=== PATIENT | male | born 1940 | race Caucasian/White ===

== ENCOUNTER 2016-07-14 14:36 | Observation (INO) | payer OTHER ==
--- NOTE | 2016-07-14 14:46 | CPEKG ---
Heart Rate: 74 RR Interval: 811 P-R Interval: 168 QRSD Interval: 122 QT Interval: 408 QTC Interval: 453 P [place]: 12 QRS [place]: -96 T Wave [place]: 34 EKG Severity - ABNORMAL ECG - EKG Impression: SINUS RHYTHM EKG Impression: RBBB AND LPFB EKG Impression: PROBABLE INFERIOR INFARCT, OLD Electronically Signed By: Cj Sanders 14-Jul-2016 16:32:55
[2016-07-14] MEDS ORDERED: NS 500 ML IV ONE (14:52)
[2016-07-14] MEDS ORDERED: ASPIRIN 81 MG CHEWABLE TAB PO ONE (14:55)
[2016-07-14 15:00] LABS: % IMMATURE GRANULYOCYTES 0.2 % (0.0-1.1); ABSOLUTE IMMATURE GRANULOCYTES 0.02 10^3/uL (0.00-0.10); ADD DIFF? NO; ADD MORPH? NO; ADD SCAN? NO; ATYPICAL LYMPHOCYTE FLAG 0 (0-99); FRAGMENT RBC FLAG 0 (0-99); HEMATOCRIT 44.6 % (40.0-51.0); HEMOGLOBIN 15.3 g/dL (13.7-17.5); LEFT SHIFT FLG 0 (0-99); LIPEMIA HEMOLYSIS FLAG 90 (0-99); MEAN CELL HEMOGLOBIN 30.7 pg (27.9-34.1); MEAN CELL HEMOGLOBIN CONCENTR. 34.3 g/dL (32.4-36.7); MEAN CELL VOLUME 89.6 fL (81.5-99.8); MEAN PLATELET VOLUME 9.4 fL (8.7-11.7); PLATELET CLUMPS FLAG 0 (0-99); PLATELET COUNT 170 10^3/uL (150-400); RED BLOOD CELL COUNT 4.98 10^6/uL (4.40-6.38); RED CELL DISTRIBUTION WIDTH 12.9 % (11.5-15.2)
[2016-07-14 15:12] LABS: ANION GAP 15 mEq/L (8-16); CALCIUM 9.2 mg/dL (8.5-10.4); CARBON DIOXIDE 25 mEq/l (22-31); CHLORIDE 101 mEq/L (97-110); GLOMERULAR FILTRATION RATE > 60; GLUCOSE 105 mg/dL (70-100); POTASSIUM 4.3 mEq/L (3.5-5.2); SODIUM 141 mEq/L (134-144)
[2016-07-14] MEDS ORDERED: NS 1,000 ML IV ONE (15:16)
[2016-07-14 15:23] LABS: TROPONIN I < 0.012 ng/mL (0-0.034)
[2016-07-14 15:25] LABS: INR 1.15 (0.83-1.16); PROTIME(PATIENT) 14.4 SEC (12.0-15.0)
[2016-07-14 15:26] LABS: APTT 28.9 SEC (23.0-38.0)
--- NOTE | 2016-07-14 16:05 | CPEKG ---
Heart Rate: 68 RR Interval: 882 P-R Interval: 184 QRSD Interval: 128 QT Interval: 428 QTC Interval: 456 P [place]: 10 QRS [place]: -57 T Wave [place]: 33 EKG Severity - ABNORMAL ECG - EKG Impression: SINUS RHYTHM EKG Impression: RBBB AND LPFB EKG Impression: PROBABLE INFERIOR INFARCT, OLD Electronically Signed By: Cj Sanders 14-Jul-2016 16:32:44
[2016-07-14] MEDS ORDERED: NITROGLYCERIN 0.4 MG BTL SL ONE ×2 (16:12→16:15)
--- NOTE | 2016-07-14 16:15 | EDPHY ---
H & P Stated Complaint: Midsternal chest pain, low BP, fatigue since last night. Denies SOB Time Seen by Provider: 07/14/16 14:58 HPI/ROS: This patient presents with a combination of chest pain and hypotension. He reports that he has mild substernal chest pressure nonradiating peak intensity 3 /10 present for a few hours now, currently 1/10 in intensity. He explains that this chest pressure is similar to chest pressure that he has mostly aches for 1 more days of the week usually for 1-3 hours at a time with no clear exacerbating or alleviating factors. He reports is not exertional. Today he felt associated fatigue which is not typical for him and when he checked his blood pressure because quite low at 80/40. His pulse was 95 at the time. He has no other associated complaints. Patient was brought in by his son for further evaluation. The patient reports no changes in his medications or dosages of medications recently. He reports compliance with his medicines. ROS: Constitutional: Fatigue as above. No fevers. HEENT: No headache or URI symptoms. Neuro: No focal numbness tingling weakness. No confusion. Pulmonary: No cough dyspnea or pleuritic pain. Cardiovascular: No heart palpitations. He denies any calf swelling or pain. No diaphoresis. GI: He reports some chronic constipation the attributes to his morphine that he takes for osteoarthritis. He did have a large bowel movement after taking stool softeners this morning that was loose and slightly dark in color. He denies any belly pain currently. He does have some cramping belly discomfort that he attributes to constipation most days. : No complaints Integumentary: No rash or pallor Endocrine: No complaints 10 point ROS is otherwise negative Source: Patient, Family (Accompanied by his son) Exam Limitations: No limitations - Personal History Current Tetanus Diphtheria and Acellular Pertussis (TDAP): Yes Tetanus Vaccine Date: within 10 yrs - Medical/Surgical History Hx Asthma: No Hx Chronic Respiratory Disease: No Hx Diabetes: No Hx Cardiac Disease: Yes Hx Renal Disease: No Hx Cirrhosis: No Hx Alcoholism: No Hx HIV/AIDS: No Hx Splenectomy or Spleen Trauma: No Other PMH: Appy, bypass + stents, hyperlipidemia, GERD - Social History Smoking Status: Former smoker Alcohol Use: None Drug Use: None - Physical Exam Exam: General Appearance: Alert, no distress. Eyes: Pupils equal and round no pallor or injection. ENT, Mouth: Mucous membranes moist. Respiratory: There are no retractions, lungs are clear to auscultation. Cardiovascular: Regular rate and rhythm. No murmur gallop or rub. No JVD. No peripheral edema. Gastrointestinal: Abdomen is soft and nontender, no masses, bowel sounds normal. Rectal exam: No external hemorrhoids. Brown stool, no prostatic tenderness. No prostatic hypertrophy Hemoccult negative Neurological: GCS 15 with no focal sensory or motor deficits Skin: Warm and dry, no rashes. Musculoskeletal: Neck is supple nontender. Extremities are symmetrical, full range of motion. Psychiatric: Mood and affect normal DIFFERENTIAL DIAGNOSIS: After history and physical exam differential diagnosis was considered for dehydration, coronary syndrome, mi, PE, pneumonia, GI bleed Constitutional: Initial Vital Signs Temperature (C) 36.9 C 07/14/16 14:36 Heart Rate 79 07/14/16 14:36 Respiratory Rate 16 07/14/16 14:36 Blood Pressure 137/76 H 07/14/16 14:36 O2 Sat (%) 92 07/14/16 14:36 O2 Delivery Mode Room Air O2 (L/minute) 2 Allergies/Adverse Reactions: No Known Allergies Allergy (Verified 07/14/16 14:44) Home Medications: Medication Instructions Recorded Aspirin 07/14/16 Atorvastatin Calcium 07/14/16 Carvedilol 07/14/16 Clonazepam 07/14/16 Clopidogrel Bisulfate 07/14/16 Escitalopram Oxalate 07/14/16 Lovastatin 07/14/16 Melatonin 07/14/16 Metoprolol Tartrate 07/14/16 Multivitamin 07/14/16 Omeprazole 07/14/16 Ramipril 07/14/16 Tamsulosin HCl 07/14/16 morphINE 07/14/16 Medical Decision Making - Diagnostics EKG Interpretation: 12 lead EKG performed at 2:45 p.m. 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 When compared to previous EKG dated 05/28/2015 appreciate no interval change. No acute ST abnormalities. For complete read please refer to trace master a repeat EKG was performed at 1604 for interval change with ongoing 1/10 chest pain, improved blood pressure still with sinus rhythm at 68 and no interval change from the 1st EKG by my interpretation-right bundle-branch block and left posterior fascicular block. Imaging Results: Imaging Impressions Chest X-Ray 07/14/16 14:53 Impression: Sequela of prior CABG, with no evidence of congestive heart failure or focal infiltrate. Portable chest x-ray-no acute abnormalities Imaging: I viewed and interpreted images myself ED Course/Re-evaluation: IV, monitor, aspirin p. o. Labs: CBC normal, at 1st troponin normal, electrolytes normal, D-dimer negative , lactate normal 1 L normal saline bolus with resolution of his initial hypotension to a normotensive state. I discussed case with ziggy giordano, hospitalist accepts patient for transfer for further evaluation and workup. I also discussed case with Dr. George on-call for Dr. Talbert-cardiology agrees with the plan for nitroglycerin. If patient is pain-free with nitroglycerin will hold off on heparin. If he has ongoing pain will give him heparin bolus with plan to continue heparin drip the hospital. 1 supple nitroglycerin for 1/10 chest pain. Patient has persistent chest pain. 0.5 inch nitropaste placed Heparin bolus given-4000 units as per plan with Dr. Talbert and Dr. Odonnell for potential coronary syndrome Discussion: Patient presents with history of known coronary artery disease, chest pain suggestive of angina-mild with hypertension that improved with saline. No interval changes of his EKG and 1st troponin is negative. He states that he has a chronic element of angina or frequent angina that is similar. The cause of his hypotension is unclear. He does not have evidence of acute CHF , sepsis or other acute abnormalities are evident at this time. I suspect he has a combination of dehydration and perhaps some opiate effect from his chronic morphine though no recent changes in his morphine dose. Will admit for potential coronary syndrome for further treatment and observation. - Data Points Laboratory Results: Laboratory Results 07/14/16 14:45 07/14/16 14:45 07/14/16 07/14/16 07/14/16 15:15 14:55 14:45 WBC RBC Hgb Hct MCV MCH MCHC RDW Plt Count MPV Neut % (Auto) Lymph % (Auto) Glenn % (Auto) Eos % (Auto) Baso % (Auto) Nucleat RBC Rel Count Absolute Neuts (auto) Absolute Lymphs (auto) Absolute Monos (auto) Absolute Eos (auto) Absolute Basos (auto) Absolute Nucleated RBC Immature Gran % Immature Gran # PT 14.4 SEC SEC (12.0-15.0) INR 1.15 (0.83-1.16) APTT 28.9 SEC SEC (23.0-38.0) D-Dimer 0.40 ug/mLFEU ug/mLFEU (0.00-0.50) VBG Lactic Acid 0.9 mmol/L mmol/L (0.7-2.1) Sodium Potassium Chloride Carbon Dioxide Anion Gap BUN Creatinine Estimated GFR Glucose Calcium Troponin I Stool Occult Bld Scrn NEGATIVE (NEGATIVE) 07/14/16 07/14/16 14:45 14:45 WBC 8.14 10^3/uL 10^3/uL (3.80-9.50) RBC 4.98 10^6/uL 10^6/uL (4.40-6.38) Hgb 15.3 g/dL g/dL (13.7-17.5) Hct 44.6 % % (40.0-51.0) MCV 89.6 fL fL (81.5-99.8) MCH 30.7 pg pg (27.9-34.1) MCHC 34.3 g/dL g/dL (32.4-36.7) RDW 12.9 % % (11.5-15.2) Plt Count 170 10^3/uL 10^3/uL (150-400) MPV 9.4 fL fL (8.7-11.7) Neut % (Auto) 67.6 % % (39.3-74.2) Lymph % (Auto) 19.3 % % (15.0-45.0) Glenn % (Auto) 8.0 % % (4.5-13.0) Eos % (Auto) 3.8 % % (0.6-7.6) Baso % (Auto) 1.1 % % (0.3-1.7) Nucleat RBC Rel Count 0.0 % % (0.0-0.2) Absolute Neuts (auto) 5.50 10^3/uL 10^3/uL (1.70-6.50) Absolute Lymphs (auto) 1.57 10^3/uL 10^3/uL (1.00-3.00) Absolute Monos (auto) 0.65 10^3/uL 10^3/uL (0.30-0.80) Absolute Eos (auto) 0.31 10^3/uL 10^3/uL (0.03-0.40) Absolute Basos (auto) 0.09 10^3/uL 10^3/uL (0.02-0.10) Absolute Nucleated RBC 0.00 10^3/uL 10^3/uL (0-0.01) Immature Gran % 0.2 % % (0.0-1.1) Immature Gran # 0.02 10^3/uL 10^3/uL (0.00-0.10) PT INR APTT D-Dimer VBG Lactic Acid Sodium 141 mEq/L mEq/L (134-144) Potassium 4.3 mEq/L mEq/L (3.5-5.2) Chloride 101 mEq/L mEq/L (97-110) Carbon Dioxide 25 mEq/l mEq/l (22-31) Anion Gap 15 mEq/L mEq/L (8-16) BUN 11 mg/dL mg/dL (7-23) Creatinine 1.0 mg/dL mg/dL (0.7-1.3) Estimated GFR > 60 Glucose 105 mg/dL H mg/dL (70-100) Calcium 9.2 mg/dL mg/dL (8.5-10.4) Troponin I < 0.012 ng/mL ng/mL (0-0.034) Stool Occult Bld Scrn Medications Given: Discontinued Medications Aspirin (Aspirin) 243 mg PO EDNOW ONE Stop: 07/14/16 14:56 Last Admin: 07/14/16 14:59 Dose: 243 mg Sodium Chloride (Ns) 500 mls @ 1,000 mls/hr IV ONCE ONE PRN Reason: Protocol Stop: 07/14/16 15:21 Last Admin: 07/14/16 15:05 Dose: 500 mls Sodium Chloride (Ns) 1,000 mls @ 0 mls/hr IV ONCE ONE; Wide Open PRN Reason: Protocol Stop: 07/14/16 15:17 Last Admin: 07/14/16 15:14 Dose: 1,000 mls Nitroglycerin (Nitrostat) 0.4 mg SL EDNOW ONE Stop: 07/14/16 16:16 Last Admin: 07/14/16 16:15 Dose: 0.4 mg Departure - Departure Disposition: [facility] Inpatient Acute Clinical Impression: Chest pain Qualifiers: Chest pain type: unspecified Qualified Code(s): R07.9 - Chest pain, unspecified Hypotension Qualifiers: Hypotension type: unspecified hypotension type Qualified Code(s): I95.9 - Hypotension, unspecified Condition: Fair
[2016-07-14] MEDS ORDERED: NITROGLYCERIN 2% 1 GM PACKET TP ONE (16:26)
[2016-07-14] MEDS ORDERED: HEPARIN 10,000 UNIT/10 ML MDV IVP ONE (16:26)
[2016-07-14] MEDS ORDERED: HEPARIN 10,000 UNIT/10 ML MDV ONE (16:34)
[2016-07-14] MEDS ORDERED: NITROGLYCERIN 2% 1 GM PACKET ONE (16:42)
[2016-07-14] MEDS ORDERED: ONDANSETRON DISINTEGRATING 4 MG TAB PO PRN (18:21)
[2016-07-14] MEDS ORDERED: ACETAMINOPHEN 325 MG TAB PO PRN (18:21)
[2016-07-14] MEDS ORDERED: ONDANSETRON 4 MG/2 ML VIAL IVP PRN (18:21)
--- NOTE | 2016-07-14 18:29 | PDGENHP ---
History and Physical - Chief Complaint Acute chest pain - History of Present Illness Primary care provider: Dr. Alejandra Primary apprentice photographer: Dr. Talbert HPI: 75-year-old male presenting with acute chest pain characterized as sharp pain located in the substernal area, initially 1/10 in severity, escalated 3/10 severity then back down to 1/10. It was associated with some fatigue on the day of presentation, resulting in the decision to go to urgent care for further evaluation. Patient reports that the onset of his symptoms today were in the morning and he noted that his systolic blood pressure was 80/40. He was resting and not exerting himself. His symptoms of chest pain were alleviated without any intervention. His symptoms of fatigue and hypotension were alleviated by 1 L normal saline. The patient denies any other infectious symptoms, reports his oral intake of solids and liquids has been good, reports that he has not been having any diarrhea or vomiting. He does endorse that his chest pain symptoms have been intermittent and occurring for quite some time, magnitude of months to years. He has discussed them with his primary apprentice photographer and he has been told he can take sublingual nitroglycerin for these symptoms if he so desires. The patient decides not to take sublingual nitroglycerin as it seems to provoke headache. History Information - Allergies/Home Medication List Allergies/Adverse Reactions: No Known Allergies Allergy (Verified 07/14/16 14:44) Home Medications: Aspirin 07/14/16 [Last Taken Unknown] Atorvastatin Calcium 07/14/16 [Last Taken Unknown] Carvedilol 07/14/16 [Last Taken Unknown] Clonazepam 07/14/16 [Last Taken Unknown] Clopidogrel Bisulfate 07/14/16 [Last Taken Unknown] Escitalopram Oxalate 07/14/16 [Last Taken Unknown] Lovastatin 07/14/16 [Last Taken Unknown] Melatonin 07/14/16 [Last Taken Unknown] Metoprolol Tartrate 07/14/16 [Last Taken Unknown] Multivitamin 07/14/16 [Last Taken Unknown] Omeprazole 07/14/16 [Last Taken Unknown] Ramipril 07/14/16 [Last Taken Unknown] Tamsulosin HCl 07/14/16 [Last Taken Unknown] morphINE 07/14/16 [Last Taken Unknown] I have personally reviewed and updated: family history, medical history, social history, surgical history - Past Medical History coronary artery disease (With last cardiac stents approximately 3 years ago), hypertension, hyperlipidemia Additional medical history: Osteoarthritis with continuous opiate dependency - Surgical History Additional surgical history: CABG, cardiac stents, ureteral stent 2012 - Family History Additional family history: No recent history of sick family contacts - Social History Smoking Status: Former smoker Alcohol Use: None Drug Use: None Additional social history: Normally independent in his ADLs, patient does not exercise regularly but when he does mow his yd does not get chest pain Review of Systems ROS: 10pt was reviewed & negative except for what was stated in HPI & below Constitutional: Reports: other (Fatigue) Cardiac: Reports: chest pain Physical Exam Temp Pulse Resp BP Pulse Ox 36.6 C 55 L 12 106/57 L 94 07/14/16 17:30 07/14/16 17:30 07/14/16 17:30 07/14/16 17:30 07/14/16 17:30 Constitutional: no apparent distress, appears nourished, not in pain Eyes: PERRL, anicteric sclera, EOMI Ears, Nose, Mouth, Throat: moist mucous membranes, hearing normal, ears appear normal, no oral mucosal ulcers Cardiovascular: regular rate and rhythym, no murmur, rub, or gallop, No edema Respiratory: no respiratory distress, no rales or rhonchi, clear to auscultation Gastrointestinal: normoactive bowel sounds, soft, non-tender abdomen, no palpable masses Genitourinary: no bladder fullness, no bladder tenderness Skin: other (Vesicular lesions or rashes over his chest) Musculoskeletal: other (Full range of motion bilateral shoulders without any pain, no tenderness to palpation of the pectoralis muscles) Neurologic: AAOx3, sensation intact bilaterally Psychiatric: interacting appropriately, not anxious, not encephalopathic, thought process linear Lab Data & Imaging Review 07/14/16 14:45 07/14/16 14:45 WBC 8.14 10^3/uL (3.80-9.50) 07/14/16 14:45 RBC 4.98 10^6/uL (4.40-6.38) 07/14/16 14:45 Hgb 15.3 g/dL (13.7-17.5) 07/14/16 14:45 Hct 44.6 % (40.0-51.0) 07/14/16 14:45 MCV 89.6 fL (81.5-99.8) 07/14/16 14:45 MCH 30.7 pg (27.9-34.1) 07/14/16 14:45 MCHC 34.3 g/dL (32.4-36.7) 07/14/16 14:45 RDW 12.9 % (11.5-15.2) 07/14/16 14:45 Plt Count 170 10^3/uL (150-400) 07/14/16 14:45 MPV 9.4 fL (8.7-11.7) 07/14/16 14:45 Neut % (Auto) 67.6 % (39.3-74.2) 07/14/16 14:45 Lymph % (Auto) 19.3 % (15.0-45.0) 07/14/16 14:45 [place] % (Auto) 8.0 % (4.5-13.0) 07/14/16 14:45 Eos % (Auto) 3.8 % (0.6-7.6) 07/14/16 14:45 Baso % (Auto) 1.1 % (0.3-1.7) 07/14/16 14:45 Nucleat RBC Rel Count 0.0 % (0.0-0.2) 07/14/16 14:45 Absolute Neuts (auto) 5.50 10^3/uL (1.70-6.50) 07/14/16 14:45 Absolute Lymphs (auto) 1.57 10^3/uL (1.00-3.00) 07/14/16 14:45 Absolute Monos (auto) 0.65 10^3/uL (0.30-0.80) 07/14/16 14:45 Absolute Eos (auto) 0.31 10^3/uL (0.03-0.40) 07/14/16 14:45 Absolute Basos (auto) 0.09 10^3/uL (0.02-0.10) 07/14/16 14:45 Absolute Nucleated RBC 0.00 10^3/uL (0-0.01) 07/14/16 14:45 Immature Gran % 0.2 % (0.0-1.1) 07/14/16 14:45 Immature Gran # 0.02 10^3/uL (0.00-0.10) 07/14/16 14:45 PT 14.4 SEC (12.0-15.0) 07/14/16 14:45 INR 1.15 (0.83-1.16) 07/14/16 14:45 APTT 28.9 SEC (23.0-38.0) 07/14/16 14:45 D-Dimer 0.40 ug/mLFEU (0.00-0.50) 07/14/16 14:45 VBG Lactic Acid 0.9 mmol/L (0.7-2.1) 07/14/16 14:55 Sodium 141 mEq/L (134-144) 07/14/16 14:45 Potassium 4.3 mEq/L (3.5-5.2) 07/14/16 14:45 Chloride 101 mEq/L (97-110) 07/14/16 14:45 Carbon Dioxide 25 mEq/l (22-31) 07/14/16 14:45 Anion Gap 15 mEq/L (8-16) 07/14/16 14:45 BUN 11 mg/dL (7-23) 07/14/16 14:45 Creatinine 1.0 mg/dL (0.7-1.3) 07/14/16 14:45 Estimated GFR > 60 07/14/16 14:45 Glucose 105 mg/dL (70-100) H 07/14/16 14:45 Calcium 9.2 mg/dL (8.5-10.4) 07/14/16 14:45 Troponin I < 0.012 ng/mL (0-0.034) 07/14/16 14:45 Stool Occult Bld Scrn NEGATIVE (NEGATIVE) 07/14/16 15:15 Visualized and Interpreted Chest x-ray results: Yes Chest X-Ray results: no infiltrate (No CHF) Visualized and Interpreted EKG results: Yes EKG Interpretation: Positive for: other (Right bundle branch block with left posterior fascicular block) Assessment & Plan Assessment: 75-year-old male presenting with acute chest pain in the setting of known coronary artery disease Plan: 1. Chest pain. Acute, new problem this provider, further workup indicated. Potential etiologies include unstable angina versus atypical chest pain. -given his history of coronary artery disease as well as other comorbid risk factors, recommend further cardiac risk stratification at this time -given that he is chest pain-free at this time we will not initiate sublingual nitroglycerin or heparin, but would recommend reassessing if he experiences recurrent pain -his most recent stress test has been remote and would recommend treadmill at this time -cardiology consultation appreciated to help determine if treadmill stress testing is the correct modality versus cardiac catheterization given his underlying CAD -if treadmill unremarkable, then recommend further discussion with patient regarding atypical causes of chest pain notably GERD versus costochondritis versus chronic pain syndrome -continue monitor on telemetry -repeat troponin this evening 2. Coronary artery disease. Continue home medications once reconciled 3. Hypertension. Acute, SBP 80 prior to presentation with associated fatigue, most likely the symptom is related to the number -unclear etiology of hypotension, patient reports no recent changes in his home medications or any other signs of infection -continue monitor blood pressure closely and if experiences recurrent hypertension, send lactic acid level -discussed with Dr. Cj Sanders from urgent care, he has told me that the patient received 1 L normal saline hold on further IV fluids 4. Chronic pain with continuous opiate dependency. Reviewed outside records including 05/30/2012 discharge summary by Joseline Ordoñez, she reports the patient had nephrolithiasis as well of hydronephrosis and his osteoarthritis seems to be contributing to her chronic pain syndrome for which she chronically takes opiates Diet. Cardiac, NPO in a.m. Prophylaxis. High risk patient, Lovenox 40 Code status. Full, is MPOA Disposition. Anticipated discharge is 07/15/2016, pending further workup as outlined above.
[2016-07-14] MEDS ORDERED: SENNOSIDES 1 TAB PO PRN (22:33)
[2016-07-15 05:48] LABS: % IMMATURE GRANULYOCYTES 0.4 % (0.0-1.1); ABSOLUTE IMMATURE GRANULOCYTES 0.03 10^3/uL (0.00-0.10); ADD DIFF? NO; ADD MORPH? NO; ADD SCAN? NO; ATYPICAL LYMPHOCYTE FLAG 0 (0-99); FRAGMENT RBC FLAG 0 (0-99); HEMATOCRIT 37.8 % (40.0-51.0); HEMOGLOBIN 12.9 g/dL (13.7-17.5); LEFT SHIFT FLG 0 (0-99); LIPEMIA HEMOLYSIS FLAG 90 (0-99); MEAN CELL HEMOGLOBIN 31.3 pg (27.9-34.1); MEAN CELL HEMOGLOBIN CONCENTR. 34.1 g/dL (32.4-36.7); MEAN CELL VOLUME 91.7 fL (81.5-99.8); PLATELET CLUMPS FLAG 0 (0-99); PLATELET COUNT 136 10^3/uL (150-400); RED BLOOD CELL COUNT 4.12 10^6/uL (4.40-6.38)
[2016-07-15 06:07] LABS: ALANINE AMINOTRANSFERASE 31 IU/L (21-72); ALBUMIN 3.5 g/dL (3.5-5.0); ALKALINE PHOSPHATASE 51 IU/L (38-126); ANION GAP 9 mEq/L (8-16); ASPARTATE AMINOTRANSFERASE 21 IU/L (17-59); BILIRUBIN,TOTAL 1.8 mg/dL (0.1-1.4); CALCIUM 8.6 mg/dL (8.5-10.4); CARBON DIOXIDE 21 mEq/l (22-31); CHLORIDE 108 mEq/L (97-110); GLOMERULAR FILTRATION RATE > 60; GLUCOSE 88 mg/dL (70-100); SODIUM 138 mEq/L (134-144); TOTAL PROTEIN 5.8 g/dL (6.3-8.2)
[2016-07-15] MEDS: morphINE IR 30 MG TAB PO SCH ×4 (07:09→21:57)
[2016-07-15] MEDS: ENOXAPARIN 40 MG/0.4 ML SYR SC SCH (08:31)
[2016-07-15] MEDS: TAMSULOSIN HCL 0.4 MG CAP PO SCH (08:32)
[2016-07-15] MEDS: PRAVASTATIN SODIUM 40 MG TAB PO SCH ×2 (08:32→21:58)
[2016-07-15] MEDS: ASPIRIN EC 81 MG TAB PO SCH (08:32)
--- NOTE | 2016-07-15 10:03 | PDCARST ---
CAR Stress Test Results Type of Stress Test: Nuclear TM stress test Indication: cp/hypotension Description of Procedure: After informed consent was obtained, pt was exercised according to Alvino Protocol. Monitoring was performed with standard stress tablet tester electrode placement. Vital signs were monitored according to protocol throughout the procedure. STRESS EKG AND HEMODYNAMIC DATA. Exercise time: 5 min. This is equivalent to: 6.1 METS. Resting heart rate: 57 bpm. Resting blood pressure: 124/68 mmHg. Resting O2 saturation: 96 %. Peak heart rate: 142 bpm. This is 97% of age predicted maximum heart rate response. Peak blood pressure: 158/60 mmHg. Exercise O2: 92%. Arrhythmias : None. Reason for termination: The test was stopped due to maximal effort. Symptoms: The patient experienced no typical symptoms of angina during stress or recovery. STRESS TEST ANALYSIS. Baseline ECG: SR with RBBBB, inf Qs. Stress ECG: SR with RBBB. exercise induced ischemic ECG changes: No. Rhythm: no arrhythmias noted during exercise and recovery. Blood pressure: normal blood pressure response to exercise. Exercise tolerance: The patient has normal exercise tolerance adjusted for age and gender. Symptoms: No exercise induced symptoms. Impression: Stress ECG negative for ischemia. The Shane Treadmill Score is consistent with low cardiovascular risk (<1% annual mortality). Conclusion: Await nuclear images.
--- NOTE | 2016-07-15 10:15 | PDCARPN ---
Cardiology Progress Note Chief Complaint: chronic cp/hypotension Assessment/Plan: Assessment: 75M PMH CAD/CABG, PCI to LAD 2006, C 2016 with patent grafts/stent, dyslipidemia, htn, frequent PVCs (controlled with Metoprolol), presented to [facility] ED with cp with associated low BP of 80/40. This was also associated with fatigue. # cp: chronic issue MPI today likely d/c home if images wnl #. hypotension: improved with IV hydration pt should be encouraged to increase PO hydration #. PVCs: none seen on tele monitoring decrease home Metoprolol to 12.5 hs Plan: OK to d/c if MPI normal Decrease home Metoprolol to 12.5 at hs Increase hydration to 2-3 liters daily follow up with Dr. Talbert or Bas[place] in 1 month's time 07/15/16 10:08 Subjective: Feels well currently. Reviewed/Discussed With: hospitalist (Dr. Carrera) Objective: Vital Signs (8 Hrs) Temp Pulse Resp BP Pulse Ox 07/15/16 08:20 98.0 F 54 L 16 95/54 L 92 07/15/16 03:40 97.8 F 61 18 98/48 L 91 L Intake/Output (24 Hrs) 07/14/16 07/15/16 07/16/16 05:59 05:59 05:59 Intake Total 2150 Balance 2150 Intake: Oral (ml) 450 IV Infused (ml) 1700 Other: Weight 86.6 kg Number of Voids Toilet 3 Result Diagrams: 07/15/16 04:12 07/15/16 04:12 Cardiac Labs: Cardiac Lab Results (72 Hrs) 07/14/16 22:57 Troponin I < 0.012 - Physical Exam Constitutional: healthy appearing, no apparent distress Ears, Nose, Mouth, Throat: moist mucous membranes Cardiovascular: regular rate and rhythm Respiratory: clear to auscultate bilat, no crackles Neurologic: AAOx3 Psychiatric: cooperative, interactive ICD10 Worksheet Patient Problems: Problems Problem Status Onset Chest pain Acute Hypotension Acute
[2016-07-15] MEDS ORDERED: METHYLNALTREXONE BROMIDE 12 MG/0.6 ML INJ SC ONE (16:18)
--- NOTE | 2016-07-15 17:42 | HOSPPROG ---
Hospitalist Progress Note Assessment/Plan: 75 yo M with PMH of CAD s/p CABG as well as chronic pain with continuous opiate use and dependency admitted with chest pain # chest pain: appreciate cardiology input, this is a fairly frequent issue for him and sxs seem to be his usual angina sxs. Trops neg x 2. ECG personally reviewed showing SR, LPFB, RBBB all of which is unchanged from prior. Nuc stress performed today and there is e/o inferior wall defect and will need rest portion performed in am for full eval. Currently chest pain free # chronic abdominal pain: in discussion with patient and his this is largely related to constipation which has been an ongoing issue for him since being on morphine. He has tried laxatives with some mild improvement. Last BM was yesterday and today there is essentially no pain and normal abd exam. Suspect all related to constipation as next. 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 Frequently goes several days w /o having a bm. Does not eat much roughage. Has not tried relistor and will give a one time dose here as well as bowel protocol. Reviewed options to try to have more fiber in his diet and will ask dietary to see him also # chronic pain/continuous opiate use and dependency: at baseline, having significant constipation as above # BPH: continued on tamsulosin, does have issues with urinary retention at times largely when also having issues with constipation as above # CAD: hx of cabg, cp w/u as above, continue asa/plavix/statin/bb # PVCs: has been a chronic issue for which he is on BB, hr on the low end currently so decreased metop to 12.5 at HS # dispo: IP status, given multiple active comorbid complaints will need > 48 hours for eval/mgmt of above Patient new to my care. Old records reviewed and summarized as above. Care plan reviewed with patients present at bedside as well as cardiology. Subjective: no acute overnight events, no longer having chest pain, has had some abdominal pain which is frequent for him. c/o constipation--long standing issue Objective: Vital Signs Temp Pulse Resp BP Pulse Ox 36.6 C 54 L 14 103/55 L 96 07/15/16 15:40 07/15/16 15:40 07/15/16 15:40 07/15/16 15:40 07/15/16 15:40 Laboratory Results 07/15/16 04:12 07/15/16 04:12 07/14/16 07/15/16 07/16/16 05:59 05:59 05:59 Intake Total 2150 120 Balance 2150 120 PT 14.4 SEC (12.0-15.0) 07/14/16 14:45 INR 1.15 (0.83-1.16) 07/14/16 14:45 awake alert nad anicteric op clear rrr rakesh cta b soft mild diffuse ttp +bs nd no cce warm dry well perfused oriented appropriate - Time Spent With Patient Time Spent with Patient: greater than 35 minutes Time Spent with Patient: Greater than 35 minutes spent on this patients care, greater than 50% of time spent counseling, educating, and coordinating care regarding the above mentioned plan. ICD10 Worksheet Patient Problems: Problems Problem Status Onset Chest pain Acute Hypotension Acute
[2016-07-15] MEDS ORDERED: METOPROLOL TARTRATE 25 MG TAB PO SCH (21:00)
[2016-07-15] MEDS ORDERED: CLOPIDOGREL BISULFATE 75 MG TAB PO SCH (21:00)
[2016-07-16 05:31] LABS: % IMMATURE GRANULYOCYTES 0.1 % (0.0-1.1); ABSOLUTE IMMATURE GRANULOCYTES 0.01 10^3/uL (0.00-0.10); ADD DIFF? NO; ADD MORPH? NO; ADD SCAN? NO; ATYPICAL LYMPHOCYTE FLAG 0 (0-99); FRAGMENT RBC FLAG 0 (0-99); HEMATOCRIT 42.6 % (40.0-51.0); HEMOGLOBIN 14.3 g/dL (13.7-17.5); LEFT SHIFT FLG 0 (0-99); LIPEMIA HEMOLYSIS FLAG 80 (0-99); MEAN CELL HEMOGLOBIN 30.8 pg (27.9-34.1); MEAN CELL HEMOGLOBIN CONCENTR. 33.6 g/dL (32.4-36.7); MEAN CELL VOLUME 91.8 fL (81.5-99.8); MEAN PLATELET VOLUME 9.9 fL (8.7-11.7); PLATELET CLUMPS FLAG 0 (0-99); PLATELET COUNT 144 10^3/uL (150-400); RED BLOOD CELL COUNT 4.64 10^6/uL (4.40-6.38); RED CELL DISTRIBUTION WIDTH 12.9 % (11.5-15.2)
[2016-07-16] MEDS: morphINE IR 30 MG TAB PO SCH ×2 (05:38→12:27)
[2016-07-16 05:41] LABS: ALANINE AMINOTRANSFERASE 32 IU/L (21-72); ALBUMIN 3.8 g/dL (3.5-5.0); ALKALINE PHOSPHATASE 51 IU/L (38-126); ANION GAP 12 mEq/L (8-16); ASPARTATE AMINOTRANSFERASE 23 IU/L (17-59); BILIRUBIN,TOTAL 1.3 mg/dL (0.1-1.4); BILIRUBIN-CONJUGATED 0.1 mg/dL (0.0-0.5); BILIRUBIN-UNCONJUGATED 1.2 mg/dL (0.0-1.1); CALCIUM 9.5 mg/dL (8.5-10.4); CARBON DIOXIDE 25 mEq/l (22-31); CHLORIDE 103 mEq/L (97-110); GLOMERULAR FILTRATION RATE > 60; GLUCOSE 101 mg/dL (70-100); POTASSIUM 4.2 mEq/L (3.5-5.2); SODIUM 140 mEq/L (134-144); TOTAL PROTEIN 6.7 g/dL (6.3-8.2)
[2016-07-16 07:18] VITALS: O2SAT 92
[2016-07-16] MEDS: PRAVASTATIN SODIUM 40 MG TAB PO SCH (08:45)
[2016-07-16] MEDS: ENOXAPARIN 40 MG/0.4 ML SYR SC SCH (08:45)
[2016-07-16] MEDS: ASPIRIN EC 81 MG TAB PO SCH (08:45)
[2016-07-16] MEDS: TAMSULOSIN HCL 0.4 MG CAP PO SCH (08:45)
[2016-07-16 11:34] VITALS: BP 100/60; PULSE 49; RESP 12; TEMP 97.6
--- NOTE | 2016-07-16 14:07 | PDDCSUM ---
Discharge Summary Discharge Summary: Dates of service 07/14-07/16/16 Discharge diagnosis: # chest pain/stable angina # CAD # opioid induced constipation # chronic pain/continuous opioid use and dependency # BPH # PVCs Consultations: cardiology Procedures performed: nuc stress test Hospital course by problem: # chest pain/stable angina: this seems c/w his usual recurrent angina sxs, trops neg, ecg unchanged, stress test with same defect that was present in the past. Cardiology recommending op f/u and no change to his current regimen. Currently cp free. 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 Frequently goes several days w /o having a bm. Does not eat much roughage. Given sc relistor x 1 and recommending that if this works that he obtain an rx from his pcp for oral. continue bowel protocol. # chronic pain/continuous opiate use and dependency: at baseline, having significant constipation as above # BPH: continued on tamsulosin, does have issues with urinary retention at times largely when also having issues with constipation as above # CAD: hx of cabg, cp w/u as above, continue asa/plavix/statin/bb # PVCs: has been a chronic issue for which he is on BB, hr on the low end currently so decreased metop to 12.5 at HS # dispo: dc home Meds: see EHR F/u with pcp and cardiology > 35 minutes spent in care of patient more than half in face to face counseling of patient and his regarding f/u care plans
== END 2016-07-16 15:15 | disposition home or self-care (01) ==
LOC: CED 14:36 → CEDHOLD 15:35 → F2W 17:24 → INTOOBSV 07-15 17:42 → OBSVTOIN 07-15 17:42
PROVIDERS: ADMIT Internal Medicine; ATTEND Internal Medicine
DX: I25.119 Atherosclerotic heart disease of native coronary artery with unspecified angina pectoris (principal); I10 Essential (primary) hypertension; G89.29 Other chronic pain; F11.20 Opioid dependence, uncomplicated; Z95.1 Presence of aortocoronary bypass graft; K59.03 Drug induced constipation; T40.2X5A Adverse effect of other opioids, initial encounter; N40.1 Benign prostatic hyperplasia with lower urinary tract symptoms; R33.8 Other retention of urine; I49.3 Ventricular premature depolarization; Z95.5 Presence of coronary angioplasty implant and graft
CPT/HCPCS: 71010; 78452; 93005; 93017; 96361; 96374; 96375; 99285; A9500; G0378; J1644; J1650; J2212; 80048-PO; 82270-PO; 83605-PO; 84484-PO; 85025-PO; 85378-PO; 85610-PO; 85730-PO

== ENCOUNTER 2018-05-31 07:12 | Inpatient (IN) | payer OTHER ==
[2018-05-31] MEDS ORDERED: ASPIRIN EC 325 MG TAB PO ONE ×2 (07:14→07:29)
[2018-05-31] MEDS ORDERED: NS 1,000 ML IV ONE (07:14)
[2018-05-31] MEDS ORDERED: FAMOTIDINE 20 MG TAB PO ONE (07:14)
[2018-05-31] MEDS ORDERED: DIAZEPAM 5 MG TAB PO ONE (07:14)
[2018-05-31] MEDS ORDERED: diphenhydrAMINE 25 MG CAP PO ONE ×2 (07:14→07:29)
[2018-05-31] MEDS ORDERED: FAMOTIDINE 20 MG TAB ONE (07:29)
[2018-05-31] MEDS ORDERED: DIAZEPAM 5 MG TAB ONE (07:30)
[2018-05-31] MEDS ORDERED: LIDOCAINE 1% 300 MG/30 ML SDV ONE (09:00)
[2018-05-31] MEDS ORDERED: MIDAZOLAM 2 MG/2 ML VIAL ONE ×2 (09:00→12:07)
[2018-05-31] MEDS ORDERED: IOPAMIDOL (ISOVUE-370) 150 ML BTL IV ONE ×3 (09:00→11:21)
[2018-05-31] MEDS ORDERED: fentaNYL 100 MCG/2 ML INJ ONE ×3 (09:00→12:07)
[2018-05-31] MEDS ORDERED: BIVALIRUDIN 250 MG/5 ML VIAL IV ONE ×2 (10:24→11:13)
[2018-05-31] MEDS ORDERED: NITROGLYCERIN 1,500 MCG/15 ML VIAL MISC ONE (10:24)
[2018-05-31] MEDS ORDERED: ATROPINE SULFATE 1 MG/10 ML SYR ONE ×2 (10:46→11:51)
[2018-05-31] MEDS ORDERED: EPINEPHrine 1 MG/10 ML SYR IVP ONE (10:47)
[2018-05-31] MEDS ORDERED: CLOPIDOGREL BISULFATE 75 MG TAB ONE (12:04)
[2018-05-31] MEDS ORDERED: TEMAZEPAM 15 MG CAP PO PRN (12:13)
[2018-05-31] MEDS ORDERED: HYDROCODONE/APAP 5/325 TAB PO PRN (12:13)
[2018-05-31] MEDS ORDERED: OXYCODONE/APAP 5/325 TAB PO PRN (12:13)
[2018-05-31] MEDS ORDERED: ONDANSETRON 4 MG/2 ML VIAL IVP PRN (12:13)
[2018-05-31] MEDS ORDERED: LORazepam 2 MG/ML INJ IVP PRN (12:13)
[2018-05-31] MEDS ORDERED: ATROPINE SULFATE 1 MG/10 ML SYR IVP PRN (12:13)
[2018-05-31] MEDS ORDERED: CLOPIDOGREL BISULFATE 75 MG TAB PO ONE (12:13)
[2018-05-31] MEDS ORDERED: NITROGLYCERIN 0.4 MG BTL SL PRN (12:13)
[2018-05-31] MEDS ORDERED: NS 1,000 ML IV SCH (12:15)
[2018-05-31] MEDS ORDERED: morphINE IR 30 MG TAB PO SCH (18:00)
[2018-06-01] MEDS ORDERED: TAMSULOSIN HCL 0.4 MG CAP PO SCH (09:00)
[2018-06-01] MEDS ORDERED: ASPIRIN EC 325 MG TAB PO SCH (09:00)
[2018-06-01] MEDS ORDERED: METOPROLOL SUCCINATE XR 25 MG TAB PO SCH (09:00)
[2018-06-01] MEDS ORDERED: PRAVASTATIN SODIUM 40 MG TAB PO SCH (09:00)
[2018-06-01] MEDS ORDERED: CLOPIDOGREL BISULFATE 75 MG TAB PO SCH (09:00)
== END 2018-06-01 11:04 | disposition home or self-care (01) | DRG 247 ==
DX: I25.119 Atherosclerotic heart disease of native coronary artery with unspecified angina pectoris (principal); I25.82 Chronic total occlusion of coronary artery; T82.868A Thrombosis due to vascular prosthetic devices, implants and grafts, initial encounter; I51.3 Intracardiac thrombosis, not elsewhere classified; I97.790 Other intraoperative cardiac functional disturbances during cardiac surgery; I44.1 Atrioventricular block, second degree; I10 Essential (primary) hypertension; E78.5 Hyperlipidemia, unspecified; G47.33 Obstructive sleep apnea (adult) (pediatric); Z95.5 Presence of coronary angioplasty implant and graft; Z95.1 Presence of aortocoronary bypass graft; Z87.891 Personal history of nicotine dependence

== ENCOUNTER → 2018-06-24 | Outpatient (CLI) | payer OTHER | LOC: EMCIMAGING 08:34 | PROVIDERS: ATTEND Internal Medicine | DX: R10.9 Unspecified abdominal pain (principal); Z87.442 Personal history of urinary calculi; Z87.440 Personal history of urinary (tract) infections | CPT/HCPCS: 76700-PN ==